=== PATIENT | female | born 1985 | race Caucasian/White ===

== ENCOUNTER 2018-11-07 23:54 | Observation (INO) | payer SELFPAY ==
[2018-11-08] MEDS ORDERED: ED cefTRIAXone 1 GM/50 ML 1 GM/50 ML PREMIX.SET IVPB ONE (00:06)
--- NOTE | 2018-11-08 00:08 | ED ---
Abdominal Pain/Female - HPI Summary HPI Summary: 33 yo female presents [place] [facility] accompanied by her with complaints of abdominal pain and no BM for the last 6 days. She tells me that she has a history of Crohn's disease and has had bowel obstructions in the past. Her last flare was about a month ago and she was on prednisone, but her pain never really went away. Over the last week she has had increasing abdominal pain without a BM. Today she developed severe nausea and has not eaten. Her abdomen feels "like a rock". Denies fever, SOB, chest pain, vomiting, bloody BM, or dysuria. She had a 18 months ago, but no other abdominal surgeries. She has seen GI in the past, but has recently switched to [facility] and has an initial appt on 12/01/18 - History of Current Complaint Chief Complaint: EDAbdPain Stated Complaint: CHRONS PER PT Time Seen by Provider: 11/08/18 00:06 Hx Obtained From: Patient Hx Last Menstrual Period: 06/09/13 Onset/Duration: Gradual Onset Severity Initially: Moderate Severity Currently: Severe Pain Intensity: 8 Pain Scale Used: 0-10 Numeric Allergies/Adverse Reactions: Allergies Allergy/AdvReac Type Severity Reaction Status Date / Time anesthesia Allergy Severe Malignant Uncoded 11/07/18 23:57 hypothermia Home Medications: Home Medications Senokot TAB* 1 tab PO DAILY 11/08/18 [History Confirmed 11/08/18] PMH/Surg Hx/FS Hx/Imm Hx Endocrine/Hematology History: Denies: Hx Diabetes Cardiovascular History: Denies: Hx Congestive Heart Failure, Hx Hypertension Respiratory History: Denies: Hx Asthma, Hx Chronic Obstructive Pulmonary Disease (COPD) GI History: Reports: Hx Crohn's Disease, Other GI Disorders - Crohns and Hep C Musculoskeletal History: Reports: Hx Tendonitis - Left shoulder Sensory History: Reports: Hx Contacts or Glasses Opthamlomology History: Reports: Hx Contacts or Glasses Psychiatric History: Reports: Hx Anxiety Denies: Hx of Violent Episodes Against Others Infectious Disease History: No Infectious Disease History: Reports: Hx Hepatitis - Hep C Denies: Hx Clostridium Difficile, Hx Human Immunodeficiency Virus (HIV), Hx Shingles, Hx Tuberculosis, Traveled Outside the [place] in Last 30 Days - Social History Alcohol Use: None Substance Use Type: Reports: None Substance Use Comment - Amount & 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 SKIN: No rashes, sores, lesions, or open wounds. NECK: Supple. Nontender. No lymphadenopathy. CHEST: CTAB. No r/r/w. No accessory muscle use. Breathing comfortably and in no distress. CV: RRR. Without m/r/g. Pulses intact. Cap refill <2seconds ABDOMEN: Mild to moderate distention. TTP entire abdomen worse in RLQ and LLQ. No CVA tenderness. Bowel sounds present NEURO: Alert. PSYCH: Age appropriate behavior. Triage Information Reviewed: Yes Vital Signs On Initial Exam: Initial Vitals Temp Pulse Resp BP Pulse Ox 98.3 F 121 18 126/86 100 11/07/18 23:55 11/07/18 23:55 11/07/18 23:55 11/07/18 23:55 11/07/18 23:55 Vital Signs Reviewed: Yes Diagnostics - Vital Signs Vital Signs Temp Pulse Resp BP Pulse Ox 11/07/18 23:55 98.3 F 121 18 126/86 100 - Laboratory Result Diagrams: 11/08/18 00:39 11/08/18 00:39 Lab Statement: Any lab studies that have been ordered have been reviewed, and results considered in the medical decision making process. Re-Evaluation - Re-Evaluation First Eval Re-Evaluation Time: 01:47 Comment: Pain improved, but pt began vomiting contrast dye. Zofran ordered. Abdominal Pain Fem Course/Dx - Course Course Of Treatment: She states that morphine does not "touch her pain" and is requesting dilaudid at this time. Given the high suspicion of bowel obstruction on exam and her prudencio discomfort - she was given NS, prednisone, and dilaudid at this time. Will obtain a CT to further eval abdomen - Diagnoses Provider Diagnoses: Exacerbation of Crohn's disease Discharge - Sign-Out/Discharge Documenting (check all that apply): Sign-Out Patient Signing out patient TO: Viktor Freitas Patient Received Moderate/Deep Sedation with Procedure: No - Discharge Plan Condition: Fair Disposition: ADMITTED TO [facility] Referrals: Enrique Hawthorne DO [Primary Care Provider] - - Billing Disposition and Condition Condition: FAIR Disposition: Admitted to [facility]
[2018-11-08] MEDS ORDERED: HYDROmorphone INJ* 0.5 MG/0.5 ML SYRINGE IV SLOW PU ONE ×2 (00:30→01:55)
[2018-11-08] MEDS ORDERED: predniSONE TAB* 20 MG PO ONE (00:30)
[2018-11-08] MEDS ORDERED: NS 0.9% 1000 ML** 1,000 ML IV ONE ×3 (00:30→09:22)
[2018-11-08 00:45] LABS: ABS Eosinophils 0.1 10^3/ul (0-0.6); ABS Lymphocytes 1.1 10^3/ul (1.0-4.8); ABS Monocytes 0.6 10^3/ul (0-0.8); ABS Neutrophils 3.7 10^3/ul (1.5-7.7); Eosinophil % 2.2 %; Hematocrit 38 % (35-47); Hemoglobin 13.4 g/dL (12.0-16.0); Lymphocyte % 20.2 %; Mean Corpuscular HGB Conc 35 g/dL (31-36); Mean Corpuscular Hemoglobin 29 pg (27-31); Mean Corpuscular Volume 83 fL (80-97); Platelet Count 224 10^3/uL (150-450); Red Blood Count 4.63 10^6 /uL (3.70-4.87); Red Cell Distribution Width 15 % (10-15); White Blood Count 5.6 10^3/uL (3.5-10.8)
[2018-11-08 01:02] LABS: ALT 23 U/L (7-52); AST 18 U/L (13-39); Albumin 3.5 g/dL (3.2-5.2); Albumin/Globulin Ratio 1.1 (1-3); Alkaline Phosphatase 92 U/L (34-104); Anion Gap 7 mmol/L (2-11); BUN/Creatinine Ratio 17.4 (8-20); Blood Urea Nitrogen 12 mg/dL (6-24); C Reactive Protein 24.17 mg/L (<8.01); CO2 Carbon Dioxide 26 mmol/L (22-32); Calcium 9.1 mg/dL (8.6-10.3); Chloride 105 mmol/L (101-111); EGFR African American 117.8 (>60); EGFR Non-African American 97.4 (>60); Globulin 3.3 g/dL (2-4); Glucose 101 mg/dL (70-100); Sodium 138 mmol/L (135-145); Total Protein 6.8 g/dL (6.4-8.9)
[2018-11-08 01:08] LABS: HCG Pregnancy 0.76 mIU/mL
[2018-11-08] MEDS ORDERED: Iohexol 300* (CONTRAST) 10 ML SDV IV ONE (01:13)
[2018-11-08] MEDS ORDERED: Ondansetron INJ* 2 MG/ML VIAL IV ONE (01:46)
[2018-11-08 02:08] LABS: Urine Appearance Clear; Urine Bacteria 1+ (Absent); Urine Bilirubin Negative (Negative); Urine Blood Negative (Negative); Urine Color Yellow; Urine Glucose Negative (Negative); Urine Ketones Negative (Negative); Urine Nitrite Positive (Negative); Urine Protein Negative (Negative); Urine Red Blood Cell Absent (Absent); Urine Specific Gravity 1.012 (1.010-1.030); Urine Squamous Epithelial Cell Present (Absent); Urine Urobilinogen Negative (Negative); Urine White Blood Cell 1+(6-10/hpf) (Absent)
--- NOTE | 2018-11-08 02:30 | ED ---
Progress - Progress Note Progress Note: This patient was signed out from RITU Bland, to Viktor Freitas MD at 02:30 11/08/[address] abdomen/pelvis. Abdomen/pelvis CT impression: Inflammatory changes involving several loops of distal and mid ileum with associated mesenteric fatty proliferation and several enlarged mesenteric lymph nodes in the right lower quadrant. Appearance is concerning for inflammatory bowel disease exacerbation. Correlate for history of Crohn's disease. ED physician has reviewed this imaging report. Discussed case with lucrecia Dumont, who accepted the patient for admission. The patient is agreeable with this plan. Re-Evaluation - Re-Evaluation First Eval Re-Evaluation Time: 01:47 Comment: Pain improved, but pt began vomiting contrast dye. Zofran ordered. Course/Dx - Course Course Of Treatment: This patient was signed out from RITU Bland, to Viktor Freitas MD at 02:30 11/08/[address] abdomen/pelvis. Abdomen/pelvis CT impression: Inflammatory changes involving several loops of distal and mid ileum with. associated mesenteric fatty proliferation and several enlarged mesenteric lymph. nodes in the right lower quadrant. Appearance is concerning for inflammatory bowel disease exacerbation. Correlate for history of Crohn's disease. ED physician has reviewed this imaging report. Discussed case with lucrecia Dumont, who accepted the patient for admission. The patient is agreeable with this plan. - Diagnoses Provider Diagnoses: Exacerbation of Crohn's disease - Provider Notifications Discussed Care Of Patient With: Joel Hart Time Discussed With Above Provider: 04:34 Instructed by Provider To: Admit As Inpatient Discharge - Sign-Out/Discharge Documenting (check all that apply): Patient Departure - admit, Receiving Sign- Out Receiving patient FROM: Vicente Singh Patient Received Moderate/Deep Sedation with Procedure: No - Discharge Plan Condition: Fair Disposition: ADMITTED TO [facility] Referrals: Enrique Hawthorne DO [Primary Care Provider] - - Billing Disposition and Condition Condition: FAIR Disposition: Admitted to [facility] - Attestation Statements Document Initiated by Scribe: Yes Documenting Scribe: Jordon Cortes Provider For Whom Scribe is Documenting (Include Credential): Viktor Freitas MD Scribe Attestation: Jordon Gale, scribed for Viktro Freitas MD on 11/08/18 at 0537. Scribe Documentation Reviewed: Yes Provider Attestation: The documentation as recorded by the scribe, Jordon Cortes accurately reflects the service I personally performed and the decisions made by me, Viktor Freitas MD Status of Scribe Document: Viewed
[2018-11-08] MEDS: HYDROmorphone INJ* 0.5 MG/0.5 ML SYRINGE IV SLOW PU PRN ×2 (04:46→06:48)
[2018-11-08] MEDS ORDERED: Magnesium CITRATE* 300 ML BTL PO ONE (06:08)
[2018-11-08] MEDS ORDERED: Ondansetron ODT TAB* 4 MG PO PRN (06:14)
[2018-11-08] MEDS ORDERED: oxyCODONE/Acetamin 5/325 MG* TAB PO PRN ×2 (06:31→09:17)
[2018-11-08] MEDS ORDERED: traMADol TAB* 50 MG PO PRN (06:31)
[2018-11-08 06:38] LABS: Magnesium 1.9 mg/dL (1.9-2.7)
[2018-11-08 06:50] LABS: Acetaminophen < 15 mcg/mL
[2018-11-08] MEDS ORDERED: cefTRIAXone(*) 1 GM in NS 0.9% 50 ML* 50 ML IVPB SCH (08:00)
[2018-11-08] MEDS ORDERED: Docusate CAP* 100 MG PO SCH (09:00)
[2018-11-08] MEDS ORDERED: Nicotine PATCH 7 MG/24 HR* PATCH TRANSDERM SCH (09:00)
[2018-11-08] MEDS ORDERED: Polyethylene Glycol 3350* 17 GM PACKET PO SCH (09:00)
[2018-11-08] MEDS ORDERED: Senna TAB PO SCH (09:00)
[2018-11-08] MEDS ORDERED: HYDROmorphone INJ1* 1 MG/ML SYRINGE IV SLOW PU PRN (09:18)
[2018-11-08] MEDS: HYDROmorphone INJ1* 1 MG/ML SYRINGE ONE ×2 (09:21→09:54)
[2018-11-08 09:23] VITALS: BP 98/40
[2018-11-08] MEDS ORDERED: HYDROmorphone INJ1* 1 MG/ML SYRINGE ONE (10:00)
[2018-11-08] MEDS: HYDROmorphone INJ1* 1 MG/ML SYRINGE IV SLOW PU PRN ×2 (10:01→10:41)
--- NOTE | 2018-11-08 11:44 | HP ---
HISTORY AND PHYSICAL: DATE OF ADMISSION: 11/08/18 ADMITTING PROVIDER: Joel Hart MD PRIMARY CARE PHYSICIAN: Dr. Hawthorne. CHIEF COMPLAINT: Generalized abdominal pain; constipation; black stools; nausea and dry heaving. HISTORY OF PRESENT ILLNESS: Kerri Virk is a 33-year-old female with a past medical history of Crohn's disease, former IV heroin use and hepatitis C that had not been treated (type 1A diagnosed in 2012). She had formerly followed with Dr. Encinas and over the last 3 to 4 years, [facility] in [place]. She has had multiple treatments for her Crohn's disease including Remicade infusions. She states that the best thing that has ever worked for her is the steroids. She actually was in complete remission, starting approximately 3 to 4 years ago when she got with her last child, who now of note 18 months old, she states. For the last few months, approximately a month and a half she has developed worsening generalized abdominal pain. Dr. Hawthorne, her PCP gave her steroid taper over the course of 10 days starting at 60 mg prednisone. This was about 1 month ago and it helped "for 1 minute." Symptoms have again progressed. She has had intermittent black stools. he had episode of nausea and has history of small bowel obstruction and she presented to [facility] Room with a primary concern of ruling out small bowel obstruction. She has had no bowel movements for about 6 days, history of chronic constipation, for which she uses Senokot. She had been passing gas, but none in the last day. Here her CT scan showed evidence of inflammatory changes involving several loops of the distal and mid ileum with associated mesenteric fatty proliferation in several enlarged mesenteric lymph nodes in the right lower quadrant. Appearance is concerning for inflammatory bowel disease exacerbation. Correlate for a history of Crohn's disease. Also of note, there is moderate fecal load throughout the colon. She was without leukocytosis, white count was 5.6, CRP is elevated at 24.7. She had a urinalysis, which was positive for nitrites, trace leukocyte esterase, 1+ wbc's and got 1 dose of ceftriaxone. She got Dilaudid 0.5 mg IV x3 so far and 60 mg of prednisone. Her current pain is 7 to 8 out of 10. She actually has an appointment with [facility] on 08/23/19. She does not know who the doctor is and wants to transfer her care from Dr. Bledsoe. PAST MEDICAL HISTORY: Crohn's disease (diagnosed at age 24); hepatitis C diagnosed in 2013, type 1A, never treated, former IV heroin use; chronic constipation. FAMILY HISTORY: Mother, father and 1 brother are all alive and healthy. SOCIAL HISTORY: The patient is a current smoker of 10 cigarettes a day for 15 years. She denies alcohol use. Denies current drug use. She works at [employer] in [place]. She lives with her boyfriend and 4 children. REVIEW OF SYSTEMS: A complete 14-point review of systems negative except as per HPI. She does express feeling subjectively feverish. She denies any increased frequency of urination or dysuria. PHYSICAL EXAMINATION GENERAL APPEARANCE: Initially asleep, but easily arousable, some grimacing during parts of the exam. VITAL SIGNS: Temperature 98.3; pulse rate initially 121, currently 71; respiratory rate 18, satting 100% on room air; blood pressure 126/86. HEENT: Normocephalic, atraumatic. Pupils are equally round and reactive to light. Extraocular motions intact. No scleral icterus. LUNGS: Clear to auscultation bilaterally. No wheezing, rales or rhonchi. CARDIOVASCULAR: Regular rate and rhythm. No murmurs, rubs or gallops. ABDOMEN: Diffusely tender, more so in the left lower quadrant and suprapubic region. No rebound or guarding. No Romero's sign. Soft, nondistended. EXTREMITIES: Warm and well perfused. No peripheral edema. SKIN: No lesions. No rashes. NEURO: Cranial nerves II through XII intact. DIAGNOSTIC STUDIES/LAB: White count 5.6, hemoglobin 13.4, hematocrit 38, platelets 224. Sodium 138, potassium 4.0, chloride 105, BUN 12, creatinine 0.69 , glucose 101, lactic acid 1.1, CRP 24.1. AST 18, ALT 23, alk phos 92. Albumin 3.5, lipase 12. Urinalysis positive nitrites, trace leukocyte esterase. White count is 1+, 1+ bacteria. IMAGING: CT abdomen and pelvis with IV contrast in a very limited oral contrast showed inflammatory changes involving several loops of distal and mid ileum with with associated mesenteric and fatty proliferation, several enlarged mesenteric lymph nodes in the right lower quadrant. Appearance is concerning for inflammatory bowel disease exacerbation. There is also note of moderate fecal load throughout the colon. ASSESSMENT AND PLAN: Kerri Virk is a 33-year-old female with past medical history of Crohn's disease, has been in stable remission for few years during the of her son and up until about 1-1/2 months ago. She is presenting with severe abdominal pain and CT scan concerning for inflammatory bowel disease exacerbation and moderate stool burden in the setting of known constipation over the last 6 days. She has been started on prednisone in the emergency room. We will continue that. We would consult GI in the morning. She has a history of multiple medications including Remicade infusions. Last colonoscopy was approximately 2 years ago. Last EGD was with Dr. Encinas several years ago. Confounding etiologies include constipation and small bowel obstruction, the latter which was no evidence was seen. Again, she is only on Senokot at home. We are going to magnesium citrate here along with Colace, MiraLAX, docusate, and continue the Senna. We will continue pain control. We will try to transition to some oral pain meds if possible. At home, she had been taking Tylenol 1000 mg as frequently as q.6 hours, but usually less frequently than that. I will add on a Tylenol level. We will continue ceftriaxone for potential urinary tract infection given the positive nitrites on exam. Follow up on the urine culture. She is a full code. Her medical surrogate is Mimi Neal, her mother. She can eat a low fat diet. [id number]/[facility] #: [id number] [facility]
--- NOTE | 2018-11-08 15:07 | CONS ---
CC: Dr. Vásquez * CONSULTATION REPORT: DATE OF CONSULT: 11/08/18 REQUESTING PHYSICIAN: Dr. Hart. LADLE PULLER: Dr. Vásquez. INDICATION: Crohn's. NARRATIVE: Mrs. Virk is a 33-year-old female, who was diagnosed with suspected Crohn's disease back in 2011. She had seen Dr. Huang sena then. She was admitted to the hospital for abdominal pain. A CT was suggestive of small bowel Crohn's. The patient underwent a colonoscopy. The colonoscopy did show mild mucosal changes in the terminal ileum suggestive of treated Crohn's disease , with biopsies pending. The colon was normal. The biopsies were suggestive of Crohn's disease. She did respond to prednisone and then was transitioned to Remicade. This seemed to cause more diarrhea. At that point, there was a suspicion of an alternative diagnosis and the patient was recommended to have a second opinion. I do not believe that ever occurred. She eventually did see a vice president of customer service in [place]. He tried her on Humira, which also caused the same diarrhea. She states that at that point she was then just treated intermittently with a short burst of steroids. She states that she had gone years between having flares. She states that she changed her lifestyle, adopted more of a healthy lifestyle, changed her eating habits, and her symptoms improved. However, approximately 3 months ago she started developing abdominal pain. She had generalized abdominal pain, nausea, vomiting. No fevers, no chills. She came to the emergency room last night where a CT again showed thickened loops of small bowel suggestive of inflammatory Crohn's of the small bowel. She was admitted to the hospital for suspected Crohn's exacerbation. She did have [facility] serologies back in 2011 that were unremarkable. She denied any blood in the stool. She does have a history of drug use and dependency in the past, has been through rehab for heroin. She currently has 4 children whom she cares for. She does not like her vice president of customer service in [place] and has made an appointment with Dr. Vásquez for 12/04/18. PAST MEDICAL HISTORY: Significant for Crohn's disease; history of drug dependency; hepatitis C, never treated; anxiety. MEDICATIONS: Include: 1. Suboxone. 2. Prednisone. 3. Senokot. ALLERGIES: To ANESTHESIA, which she states causes malignant hypothermia. FAMILY HISTORY: No IBD in the family. SOCIAL HISTORY: No alcohol. No recent substance abuse. She does smoke tobacco , half pack per day, I counseled her against this. REVIEW OF SYSTEMS: Twelve systems were reviewed and other than that mentioned in the HPI were unremarkable. PHYSICAL EXAMINATION: Temperature is 98.2, blood pressure is 98/40, O2 sat is 99%, respiratory rate of 16, pulse is 77. General: Well-appearing female, lying flat in bed, alert, oriented, pleasant, fluent. HEENT: Mucous membranes are moist, without lesions, ulcers or exudate. Neck is supple. Trachea is midline. Heart: Regular rate and rhythm. No murmurs, rubs or gallops. Lungs: Clear to auscultation bilaterally. No wheezes, rales or rhonchi. Abdomen is soft, slightly distended. No rebound, no guarding. Mild generalized tenderness. Bowel sounds are hypoactive. DIAGNOSTIC STUDIES/LAB DATA: Of note, white count is 5.6, hemoglobin is 13.4, platelets of 224. Glucose is 101. CRP is 24.17. She has a CT abdomen and pelvis, which reveals inflammatory changes involving several loops of the distal and mid ileum with associated mesenteric fat proliferation, several enlarged mesenteric lymph nodes in the right lower quadrant, appearance is concerning for inflammatory bowel disease. ASSESSMENT AND PLAN: A pleasant 33-year-old female with a likely history of Crohn's, who has been self-treating with prednisone for her exacerbations, who was admitted with another exacerbation. She is doing a little bit better since starting on the steroids. Her concern right now is that she has 3 children at home, nobody watching them, she would like to leave and is threatening to leave [facility]. I told her that she will need to discuss this with the hospitalist. The hospitalists are aware. We did discuss this and likely they will be discharging her on prednisone. She already has an outpatient followup with her new vice president of customer service, Dr. Vásquez. We did discuss the fact that she has failed tumor necrosis factor antibodies in the past, may be Entyvio or Stelara would be a better option for her. Better imaging of her small bowel likely would be warranted with an MR enterography, which we could obtain tomorrow. However, the patient is likely going to leave [facility] today. I would not recommend sending her home with narcotics; however, she does need prednisone if she is going to leave [facility]. If she is here tomorrow, I can follow up with her tomorrow and make further recommendations. [id number]/[facility] #: [id number] VIVIEN[facility]
[2018-11-08] MEDS ORDERED: predniSONE TAB* 50 MG PO SCH (16:00)
--- NOTE | 2018-11-08 16:20 | DS ---
Resident Discharge Summary Discharge Summary: Date of Admission: 11/08/18 Date of Discharge: 11/08/18 Admitting MD: Joel Hart MD Attending MD: Clara Murray MD Primary Care Physician: Enrique Hawthorne DO Polyethylene Glycol 3350* [Miralax*] 17 gm PO DAILY #30 packet 11/08/18 [Rx] Senokot TAB* 1 tab PO DAILY 11/08/18 [History Confirmed 11/08/18] predniSONE TAB* [Deltasone 10 MG TAB*] 10 mg PO DAILY #70 tab 11/08/18 [Rx]- 50 mg daily for 5 days then reduce by 10 mg every 5 days. Bactrim DS Tab twice daily for 2 days. Disposition: Home Condition: Improved Primary Diagnosis: 1. Crohn's disease flare 2. Constipation 3. Hepatitis C-Untreated 4. UTI Diagnostic Imaging: Abdomen/Pelvis CT: Inflammatory changes involving several loops of distal and mid ileum with associated mesentric fatty proliferation and several enlarged mesentric lymph nodes in the right lower quadrant. Pertinent Laboratory Results: CRP: 24.17 URINE NITRATES- POSITIVE UR LEUCOCYTE ESTERASE: TRACE URINE WBC: 1+ Ur bacteria: 1+ Hospital Course: 33 y/o F with past medical history of Crohn's disease, Hepatitis C(untreated), IV drug use presented with complain of Diffuse abdominal pain for 1 month with increases severity for 1 weeks and constipation for 6 days. No bowel movement but has been passing flatus. She had nausea but no any vomiting. Denies fever, burning micturition, diarrhea. She was diagnosed with crohn's 7 years ago and was treated with remicade and steroids. She was off her steroids approx. 3-4 years ago when she got . Since this symptom started she visited her PCP and was given steroids but it didnot help. In hospital, work up was dine and her CRP was found to be elevated(24.17) and Urine analysis showed nitrites positive. Pain was controlled with dilaudid and percocet. 1 dose of [address]ftriax[address] given. CT scan of abdomen showed Ileitis. Started on Oral steroid. GI consulted. After her pain was relieved she wanted to go home even after knowing all the risks. All the risks was explained to her and discharged on steroid, bactrim and laxatives. Follow Up Instructions: Follow up with GI in 1 week for steroid tapering and Hepatitis C treatment. Follow up with PCP. Collect urine culture and stool occult blood report. In case of an emergency or after clinic hours, please go to your nearest Emergency Department. You may also call the [facility] tractor operator battery at .
[2018-11-08] MEDS ORDERED: Nicotine Patch Removal NOTE PATCH OFF SCH (21:00)
== END 2018-11-08 12:40 | disposition home or self-care (01) ==
LOC: ED 23:54 → MED 11-08 05:55
PROVIDERS: ADMIT Internal Medicine; ATTEND Internal Medicine
DX: K50.90 Crohn's disease, unspecified, without complications (principal); K59.00 Constipation, unspecified; B19.20 Unspecified viral hepatitis C without hepatic coma; N39.0 Urinary tract infection, site not specified; Z79.899 Other long term (current) drug therapy; F17.210 Nicotine dependence, cigarettes, uncomplicated; K92.1 Melena
CPT/HCPCS: 36415; 74177; 80053; 80329; 81003; 81015; 83605; 83690; 83735; 84702; 85025; 86140; 87077; 87086; 87186; 96361; 96365; 96374; 96375; 96376; 99285; A9270-GY; G0378; G0480; J0696; J1170; J2405; J7512; Q9967

== ENCOUNTER 2020-05-20 12:59 | Observation (INO) ==
[2020-05-20] MEDS ORDERED: NS 0.9% 1000 ml BAG 1,000 ML IV ONE (13:07)
[2020-05-20] MEDS ORDERED: Magnesium Sulfate IV 1GM/100ML 1 GM/100 ML BAG IV ONE (13:07)
[2020-05-20] MEDS ORDERED: Diltiazem IV push/loading dose 5 MG/ML 5 ML vial (25 mg) IV SLOW PU ONE ×2 (13:07→14:21)
[2020-05-20 13:30] LABS: ABS Basophils 0.1 10^3/ul (0-0.2); ABS Eosinophils 0.2 10^3/ul (0-0.6); ABS Lymphocytes 1.7 10^3/ul (1.0-4.8); ABS Monocytes 0.6 10^3/ul (0-0.8); ABS Neutrophils 5.3 10^3/ul (1.5-7.7); Eosinophil % 2.1 %; Hematocrit 38 % (35-47); Hemoglobin 13.1 g/dL (12.0-16.0); Mean Corpuscular HGB Conc 34 g/dL (31-36); Mean Corpuscular Hemoglobin 28 pg (27-31); Mean Corpuscular Volume 83 fL (80-97); Mean Platelet Volume 8.5 fL (7.4-10.4); Platelet Count 316 10^3/uL (150-450); Red Blood Count 4.62 10^6 /uL (3.70-4.87); Red Cell Distribution Width 15 % (10-15); White Blood Count 7.8 10^3/uL (3.5-10.8)
[2020-05-20 13:42] LABS: INR 0.93 (0.82-1.09)
[2020-05-20 13:50] LABS: ALT 32 U/L (7-52); AST 20 U/L (13-39); Albumin 3.4 g/dL (3.2-5.2); Albumin/Globulin Ratio 1.2 (1-3); Alkaline Phosphatase 120 U/L (34-104); Anion Gap 5 mmol/L (2-11); Blood Urea Nitrogen 12 mg/dL (6-24); CO2 Carbon Dioxide 26 mmol/L (22-32); Calcium 8.4 mg/dL (8.6-10.3); Chloride 104 mmol/L (101-111); EGFR African American 106.4 (>60); EGFR Non-African American 87.9 (>60); Globulin 2.9 g/dL (2-4); Glucose 124 mg/dL (70-100); Magnesium 1.7 mg/dL (1.9-2.7); Sodium 135 mmol/L (135-145); Total Protein 6.3 g/dL (6.4-8.9)
[2020-05-20 13:51] LABS: Troponin I 0.01 ng/mL (<0.03)
[2020-05-20] MEDS ORDERED: Magnesium Sulfate 2 gm BAG 2 GM/50 ML BAG IVPB ONE (13:54)
[2020-05-20 14:56] LABS: HCG Pregnancy < 0.60 mIU/mL
[2020-05-20] MEDS ORDERED: Diltiazem (ADVAN VIAL) 100 MG/100 ML ADDV.BAG IV SCH (15:00)
[2020-05-20 16:07] LABS: TSH Ultra Thyroid Stim Horm 1.72 mcIU/mL (0.34-5.60)
[2020-05-20 16:09] LABS: Free T4 1.01 ng/dL (0.61-1.12)
[2020-05-20] MEDS: Enoxaparin 100 MG/ML SYR SUBCUT SCH (17:54)
[2020-05-20] MEDS: Diltiazem (ADVAN VIAL) 100 MG/100 ML ADDV.BAG IV SCH (17:57)
[2020-05-21] MEDS: Enoxaparin 100 MG/ML SYR SUBCUT SCH (05:50)
[2020-05-21 09:13] LABS: ABS Eosinophils 0.2 10^3/ul (0-0.6); ABS Lymphocytes 1.8 10^3/ul (1.0-4.8); ABS Monocytes 0.5 10^3/ul (0-0.8); ABS Neutrophils 4.3 10^3/ul (1.5-7.7); Eosinophil % 2.8 %; Hematocrit 36 % (35-47); Hemoglobin 12.3 g/dL (12.0-16.0); Mean Corpuscular HGB Conc 34 g/dL (31-36); Mean Corpuscular Hemoglobin 28 pg (27-31); Mean Corpuscular Volume 83 fL (80-97); Mean Platelet Volume 8.5 fL (7.4-10.4); Platelet Count 296 10^3/uL (150-450); Red Blood Count 4.35 10^6 /uL (3.70-4.87); Red Cell Distribution Width 15 % (10-15); White Blood Count 6.9 10^3/uL (3.5-10.8)
[2020-05-21 09:33] LABS: BUN/Creatinine Ratio 15.5 (8-20); Calcium 8.2 mg/dL (8.6-10.3); EGFR African American 113.4 (>60); EGFR Non-African American 93.7 (>60); Magnesium 1.9 mg/dL (1.9-2.7); Potassium 4.1 mmol/L (3.5-5.0)
[2020-05-21] MEDS: Diltiazem (ADVAN VIAL) 100 MG/100 ML ADDV.BAG IV SCH (10:26)
[2020-05-21] MEDS ORDERED: Magnesium Sulfate 2 gm BAG 2 GM/50 ML BAG IVPB ONE (10:42)
[2020-05-21 12:07] VITALS: BP 94/54
== END 2020-05-21 17:50 | disposition home or self-care (01) ==
LOC: MEDTELE 12:59 → ED 12:59
PROVIDERS: ADMIT Internal Medicine; ATTEND Internal Medicine